=== PATIENT | male | born 1965 | race Hispanic/Latino ===

== ENCOUNTER 2022-08-09 11:17 | Emergency (ER) | payer OTHER ==
[2022-08-09 12:03] VITALS: BP 157/103
[2022-08-09] MEDS ORDERED: TRAMADOL HCL50 MG PO (12:55)
[2022-08-09] MEDS ORDERED: VOLTAREN75 MG PO (12:55)
[2022-08-09 13:13] VITALS: BP 157/103
== END 2022-08-09 13:22 | disposition home or self-care (01) | DRG 563 ==
LOC: ED 11:17
DX: S29.012A Strain of muscle and tendon of back wall of thorax, initial encounter (principal); E11.9 Type 2 diabetes mellitus without complications; I10 Essential (primary) hypertension; F17.200 Nicotine dependence, unspecified, uncomplicated; X50.0XXA Overexertion from strenuous movement or load, initial encounter